=== PATIENT | female | born 1955 | race Caucasian/White ===

== ENCOUNTER 2018-11-30 11:00 | Emergency (ER) | payer OTHER, SELFPAY ==
[2018-11-30] VITALS (15 sets, daily range): BP systolic 94–124; BP diastolic 46–60; PULSE 63–73; RESP 11–21; TEMP 36.7; O2SAT 95–98
[2018-11-30] MEDS: Meclizine 25 MG TAB PO (12:33)
--- NOTE | 2018-11-30 12:39 | W.ED.GENAD ---
Discharge Plan Disposition Patient Disposition: HOME Condition: Improving Discharge Details Chief Complaint: Dizzy/Sync Clinical Impression: Benign paroxysmal positional vertigo, Hyperglycemia Primary Care Provider: Micheline,Local ED Provider: Isac Laird Home Meds and New Rx's Prescriptions: New meclizine 25 mg tablet 25 mg PO BID-TID PRN (Reason: dizziness) Qty: 30 RF: 1 Continued atorvastatin 20 mg Tablet 20 mg PO DAILY RF: 0 chlorthalidone 25 mg Tablet 25 mg PO DAILY RF: 0 aspirin [Aspirin Low Dose] 81 mg Tablet,Delayed Release (Dr/Ec) 81 mg PO DAILY RF: 0 losartan 100 mg Tablet 100 mg PO DAILY RF: 0 metformin 750 mg Tablet Extended Release 24 Hr 750 mg PO BID RF: 0 metoprolol tartrate 25 mg Tablet 25 mg PO BID RF: 0 duloxetine 60 mg Capsule,Delayed Release(Dr/Ec) 60 mg PO DAILY RF: 0 Victoza 2-Obed 0.6 mg/0.1 mL (18 mg/3 mL) Pen Injector 1.2 mg subcut QHS RF: 0 Toujeo SoloStar U-300 Insulin 300 unit/mL (1.5 mL) Insulin Pen 140 unit subcut DAILY RF: 0 Humulin R Regular U-100 Insuln 100 unit/mL Solution 35 unit subcut .BEFORE MEALS RF: 0 Discharge Instructions Instructions: Benign Paroxysmal Positional Vertigo (ED) Additional Instructions: Your blood glucose today was 172. This is high. Please follow-up with your doctor and neurology. Call for appointments. Timely follow-up is important. Return to the ER for any worsening or new concerning symptoms. Medical Decision Making 63-year-old female here with new onset vertigo, positional in nature. Patient has questionable history of stroke affecting vision right eye. Consider central neurologic process including CVA versus mass versus benign positional vertigo. MRI of the brain interpreted by radiology: No stroke. MRA of the brain and neck limited due to artifact. Radiology recommended CTA. 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 Patient was given meclizine and also Ativan for claustrophobia. Her vertigo significantly improved. Labs reviewed: No electrolyte abnormalities. Patient does have mild hyperglycemia. Results were reviewed with the patient. Epply maneuver performed and patient had improvement with initial fall to right. Plan for outpatient follow-up with PCP and neurology. Disposition decision was made weighing the risks and benefits of hospitalization versus outpatient treatment, the risk for further decompensation, and the patient's wishes. The patient was stable and requested discharge. Prior to discharge, my usual and customary return precautions were reviewed with the patient - this included follow-up instructions and reason to return to the emergency department if condition worsens, does not improve as expected, or other new concerns arise. HPI General Mode of arrival: ambulatory. Date/Time Provider Initiated Documentation: 11/30/18 11:52. Limitations to Documentation: no limitations. Information obtained by: patient. HPI Narrative: 63-year-old female with history of hypertension, diabetes, questionable stroke affecting vision right eye presents today with chief complaint of dizziness. Patient notes the dizziness, described as room spinning started around 1 AM. Symptoms severe. Symptoms occur when she moves her head. Symptoms improve and resolve with her lying flat. Is associated nausea. No headache, no visual changes, no numbness or weakness. No chest pain or shortness of breath. Related Data Home Medications Medication Instructions Recorded Confirmed Humulin R Regular U-100 Insuln 35 unit SUBCUT .BEFORE MEALS 11/30/18 11/30/18 Toujeo SoloStar U-300 Insulin 140 unit SUBCUT DAILY 11/30/18 11/30/18 Victoza 2-Obed 1.2 mg SUBCUT QHS 11/30/18 11/30/18 aspirin [Aspirin Low Dose] 81 mg PO DAILY 11/30/18 11/30/18 atorvastatin 20 mg PO DAILY 11/30/18 11/30/18 chlorthalidone 25 mg PO DAILY 11/30/18 11/30/18 duloxetine 60 mg PO DAILY 11/30/18 11/30/18 losartan 100 mg PO DAILY 11/30/18 11/30/18 meclizine 25 mg PO BID-TID PRN #30 tab 11/30/18 metformin 750 mg PO BID 11/30/18 11/30/18 metoprolol tartrate 25 mg PO BID 11/30/18 11/30/18 Previous Rx's Medication Instructions Recorded meclizine 25 mg PO BID-TID PRN #30 tab 11/30/18 Allergies Allergy/AdvReac Type Severity Reaction Status Date / Time No Known Allergies Allergy Unverified 11/30/18 11:41 General Stated Complaint: Dizzy/Sync GIDEON: 3 PFSH Social History Smoking/Tobacco Use Status: Current every day Tobacco Type: cigarettes Alcohol Intake: never Substance use type: does not use Exam Const General: cooperative and no acute distress HENMT Head: normocephalic and atraumatic Mouth: moist mucous membranes Eyes Conjunctivae: normal conjunctivae Sclera: normal sclerae EOM: EOM intact bilaterally and nystagmus Other: Horizontal nystagmus Neck Neck: trachea midline Resp Auscultation: clear to auscultation bilaterally, no rales, no rhonchi and no wheezes Cardio Jugular venous pressure: no JVD Rate: regular rate and not tachycardic Rhythm: regular rhythm GI Palpation: soft, not firm, no guarding, no masses, not rigid and nontender Skin General skin exam: no rashes or lesions noted Neuro General: alert, awake, oriented x3 and tone normal Cranial Nerves: CN's II-XI intact bilaterally and nystagmus horizontal Cognition: normal cognition Speech: speech normal Gait: normal gait Motor: strength 5/5 throughout Sensory Exam: no sensory deficits noted Coordination: [id number] test normal, [id number] test normal, Romberg test normal and rapid alternating movement UE normal Extrem General: no edema Psych Appearance: grossly normal Mental Status: mental status grossly normal Speech and Movement: speech and movement normal Course Vital Signs Temperature 36.7 C 11/30/18 11:39 Pulse 70 11/30/18 11:39 Respiratory Rate 16 11/30/18 11:39 Blood Pressure 113/53 L 11/30/18 11:39 Pulse Oximetry 98 11/30/18 11:39 Temperature 36.7 C 11/30/18 11:39 Temperature Source Skin 11/30/18 11:39 Pulse 70 11/30/18 11:39 Respiratory Rate 16 11/30/18 11:39 Respiratory Effort Non-Labored 11/30/18 11:39 Blood Pressure 113/53 L 11/30/18 11:39 Blood Pressure Position Sitting 11/30/18 11:39 Pulse Oximetry 98 11/30/18 11:39 Oxygen Delivery Method Room Air 11/30/18 11:39 Oxygen Flow Rate 0 11/30/18 11:39 Pain Level 0 11/30/18 11:39
--- NOTE | 2018-11-30 13:11 | DI.MRI_ITS ---
SYMPTOMS/DIAGNOSIS: VERTIGO MR ANGIOGRAM, [place]: MR angiography of the region of the [place] was performed according to the usual protocol. The examination is of limited technical quality. The basilar artery appears small and the posterior circulation appears to predominantly be supplied across the posterior communicating artery on the left from the internal carotid circulation. Right posterior communicating is also patent. Anterior cerebral arteries are supplied from left-sided circulation. Internal carotid arteries poorly seen. Middle cerebral arteries appear grossly intact. Anterior cerebral arteries and posterior cerebral arteries appear grossly intact. CONCLUSION: Very limited study. No gross abnormality seen as described above. If there is a high clinical suspicion of posterior circulation pathology, additional evaluation with CTA should be considered. BRAIN MRI: MRI examination of the brain was performed according to the usual protocol. Examination is of limited technical quality due to motion artifact. FLAIR images are of fairly good technical quality and show no significant signal abnormality in the brain or orbits. Diffusion weighted imaging is of fairly good technical quality and shows no evidence of infarct. Susceptibility weighted imaging is limited. CONCLUSION: Limited scan shows no significant abnormality. CAROTID MR ANGIOGRAPHY: MR angiography of the carotid circulation was performed according to the usual protocol. The examination is technically very limited. No gross evidence of occlusion or aneurysm in the visualized common or internal carotid arteries, but the findings are essentially nondiagnostic.
[2018-11-30] MEDS: LORazepam 2 MG/ML VIAL (13:13)
[2018-11-30 14:16] LABS: Abs Immature Grans 0.01 k/cumm (0.0-0.09); Absolute Basophil Count 0.06 k/cumm (0.0-0.2); Absolute Eosinophil Count 0.14 k/cumm (0.0-0.7); Absolute Lymphocyte Count 2.58 k/cumm (1.2-3.4); Absolute Monocyte Count 0.64 k/cumm (0.11-0.7); Absolute Neutrophil Count 5.16 k/cumm (1.2-6.7); Basophils % 0.7; Eosinophils % 1.6; HCT 35.9 % (36.0-46.0); HGB 11.3 g/dL (12.0-15.5); Immature Grans % 0.1; Mean Corp. HGB Concentration 31.5 g/dL (32.0-36.0); Mean Corpuscular Hemoglobin 28.2 pg (27.0-33.0); Mean Corpuscular Volume 89.5 fL (80-95); Mean Platelet Volume 10.2 fL (8.0-11.0); Monocytes % 7.5; Neutrophils % 60.1; Platelet Count 322 x1000/uL (130-400); RBC 4.01 m/cumm (4.00-5.20); RBC Distribution Width 14.1 % (11.7-14.6); White Blood Cell Count 8.59 k/cumm (4.4-10.8)
--- NOTE | 2018-11-30 14:31 | DI.CT_ITS ---
SYMPTOMS/DIAGNOSIS: LIMITED MRA BRAIN, VERTIGO CT ANGIOGRAPHY, CERVICOCRANIAL REGION: CT angiography was performed with multi slice acquisition and multi planar and 3D reconstruction. CT angiography was performed with intravenous infusion of 85 cc of Omnipaque 350. Images obtained through the upper lung lucas are unremarkable. Visualized portions of the pulmonary arterial circulation appear intact. No gross thoracic aortic aneurysm or dissection as visualized. The common carotid arteries are normal in appearance bilaterally. There is mild atheromatous plaque formation in the carotid bifurcations bilaterally without evidence of significant stenosis. There is tortuosity of the intracranial internal carotid arteries in the cavernous region without evidence of significant stenosis, aneurysm or dissection. Middle cerebral arteries and major branches are unremarkable in appearance. Anterior cerebral arteries and major branches are unremarkable in appearance. Right vertebral artery is unremarkable in appearance throughout its course. Left vertebral artery is diminutive but patent. Basilar artery is small. Posterior communicating artery is patent bilaterally with a large left posterior communicating artery. The posterior cerebral arteries and major branches appear intact. No aneurysm or dissection identified in the posterior circulation as described. Orbital and temporal bone structures appear intact. No intracranial enhancing lesions seen. No cervical mass or adenopathy seen. Tracheolaryngeal structures appear intact. CONCLUSION: Negative CT angiogram, carotid and [place] regions.
[2018-11-30 14:36] LABS: ALT 38 U/L (12-78); AST 22 U/L (15-37); Albumin 3.8 g/dL (3.4-5.0); Alkaline Phosphatase 157 U/L (46-116); Anion Gap 10.7 mmol/L (3-11); BUN 33 mg/dL (7-18); Bilirubin, Total 0.3 mg/dL (0.2-1.0); CO2 27.3 mmol/L (21.0-32.0); CREATININE 1.15 mg/dL (0.55-1.02); Calcium 9.2 mg/dL (8.5-10.1); Chloride 102 mmol/L (98-107); Estimated GFR 47.66 (mL/min/1.73m2); Glucose 172 mg/dL (70-100); Magnesium 2.1 mg/dL (1.8-2.4); Potassium 3.9 mmol/L (3.5-5.1); Sodium 140 mmol/L (136-145); Total Protein 8.3 g/dL (6.4-8.2)
[2018-11-30 14:42] LABS: Troponin I < 0.02 ng/mL (0.00-0.06)
[2018-11-30] MEDS: Omnipaque 350 MG/ML 100 ML BTL IJ (15:19)
--- NOTE | 2018-11-30 15:52 | ED.GENADUL_ITS ---
Discharge Plan Disposition Patient Disposition: HOME Condition: Improving Discharge Details Chief Complaint: Dizzy/Sync Clinical Impression: Benign paroxysmal positional vertigo, Hyperglycemia Primary Care Provider: Micheline,Local ED Provider: Isac Laird Home Meds and New Rx's Prescriptions: New meclizine 25 mg tablet 25 mg PO BID-TID PRN (Reason: dizziness) Qty: 30 RF: 1 Continued atorvastatin 20 mg Tablet 20 mg PO DAILY RF: 0 chlorthalidone 25 mg Tablet 25 mg PO DAILY RF: 0 aspirin [Aspirin Low Dose] 81 mg Tablet,Delayed Release (Dr/Ec) 81 mg PO DAILY RF: 0 losartan 100 mg Tablet 100 mg PO DAILY RF: 0 metformin 750 mg Tablet Extended Release 24 Hr 750 mg PO BID RF: 0 metoprolol tartrate 25 mg Tablet 25 mg PO BID RF: 0 duloxetine 60 mg Capsule,Delayed Release(Dr/Ec) 60 mg PO DAILY RF: 0 Victoza 2-Obed 0.6 mg/0.1 mL (18 mg/3 mL) Pen Injector 1.2 mg subcut QHS RF: 0 Toujeo SoloStar U-300 Insulin 300 unit/mL (1.5 mL) Insulin Pen 140 unit subcut DAILY RF: 0 Humulin R Regular U-100 Insuln 100 unit/mL Solution 35 unit subcut .BEFORE MEALS RF: 0 Discharge Instructions Instructions: Benign Paroxysmal Positional Vertigo (ED) Additional Instructions: Your blood glucose today was 172. This is high. Please follow-up with your doctor and neurology. Call for appointments. Timely follow-up is important. Return to the ER for any worsening or new concerning symptoms. Medical Decision Making 63-year-old female here with new onset vertigo, positional in nature. Patient has questionable history of stroke affecting vision right eye. Consider central neurologic process including CVA versus mass versus benign positional vertigo. MRI of the brain interpreted by radiology: No stroke. MRA of the brain and neck limited due to artifact. Radiology recommended CTA. 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 Patient was given meclizine and also Ativan for claustrophobia. Her vertigo significantly improved. Labs reviewed: No electrolyte abnormalities. Patient does have mild hyperglycemia. Results were reviewed with the patient. Epply maneuver performed and patient had improvement with initial fall to right. Plan for outpatient follow-up with PCP and neurology. Disposition decision was made weighing the risks and benefits of hospitalization versus outpatient treatment, the risk for further decompensation, and the patient's wishes. The patient was stable and requested discharge. Prior to discharge, my usual and customary return precautions were reviewed with the patient - this included follow-up instructions and reason to return to the emergency department if condition worsens, does not improve as expected, or other new concerns arise. HPI General Mode of arrival: ambulatory . Date/Time Provider Initiated Documentation: 11/30/18 11:52 . Limitations to Documentation: no limitations . Information obtained by: patient . HPI Narrative: 63-year-old female with history of hypertension, diabetes, questionable stroke affecting vision right eye presents today with chief complaint of dizziness. Patient notes the diz ziness, described as room spinning started around 1 AM. Symptoms severe. Symptoms occur when she moves her head. Symptoms improve and resolve with her lying flat. Is associated nausea. No headache, no visual changes, no numbness or weakness. No chest pain or shortness of breath. Related Data Home Medications Medication Instructions Recorded Confirmed Humulin R Regular U-100 Insuln 35 unit SUBCUT .BEFORE MEALS 11/30/18 11/30/18 Toumarcialo SoloStar U-300 Insulin 140 unit SUBCUT DAILY 11/30/18 11/30/18 Victoza 2-Obed 1.2 mg SUBCUT QHS 11/30/18 11/30/18 aspirin [Aspirin Low Dose] 81 mg PO DAILY 11/30/18 11/30/18 atorvastatin 20 mg PO DAILY 11/30/18 11/30/18 chlorthalidone 25 mg PO DAILY 11/30/18 11/30/18 duloxetine 60 mg PO DAILY 11/30/18 11/30/18 losartan 100 mg PO DAILY 11/30/18 11/30/18 meclizine 25 mg PO BID-TID PRN #30 tab 11/30/18 metformin 750 mg PO BID 11/30/18 11/30/18 metoprolol tartrate 25 mg PO BID 11/30/18 11/30/18 Previous Rx's Medication Instructions Recorded meclizine 25 mg PO BID-TID PRN #30 tab 11/30/18 Allergies Allergy/AdvReac Type Severity Reaction Status Date / Time No Known Allergies Allergy Unverified 11/30/18 11:41 General Stated Complaint: Dizzy/Sync GIDEON: 3 PFSH Social History Smoking/Tobacco Use Status: Current every day Tobacco Type: cigarettes Alcohol Intake: never Substance use type: does not use Exam Const General: cooperative and no acute distress HENMT Head: normocephalic and atraumatic Mouth: moist mucous membranes Eyes Conjunctivae: normal conjunctivae Sclera: normal sclerae EOM: EOM intact bilaterally and nystagmus Other: Horizontal nystagmus Neck Neck: trachea midline Resp Auscultation: clear to auscultation bilaterally, no rales, no rhonchi and no wheezes Cardio Jugular venous pressure: no JVD Rate: regular rate and not tachycardic Rhythm: regular rhythm GI Palpation: soft, not firm, no guarding, no masses, not rigid and nontender Skin General skin exam: no rashes or lesions noted Neuro General: alert, awake, oriented x3 and tone normal Cranial Nerves: CN's II-XI intact bilaterally and nystagmus horizontal Cognition: normal cognition Speech: speech normal Gait: normal gait Motor: strength 5/5 throughout Sensory Exam: no sensory deficits noted Coordination: [id number] test normal, [id number] test normal, Romberg test normal and rapid alternating movement UE normal Extrem General: no edema Psych Appearance: grossly normal Mental Status: mental status grossly normal Speech and Movement: speech and movement normal Course Vital Signs Temperature 36.7 C 11/30/18 11:39 Pulse 70 11/30/18 11:39 Respiratory Rate 16 11/30/18 11:39 Blood Pressure 113/53 L 11/30/18 11:39 Pulse Oximetry 98 11/30/18 11:39 Temperature 36.7 C 11/30/18 11:39 Temperature Source Skin 11/30/18 11:39 Pulse 70 11/30/18 11:39 Respiratory Rate 16 11/30/18 11:39 Respiratory Effort Non-Labored 11/30/18 11:39 Blood Pressure 113/53 L 11/30/18 11:39 Blood Pressure Position Sitting 11/30/18 11:39 Pulse Oximetry 98 11/30/18 11:39 Oxygen Delivery Method Room Air 11/30/18 11:39 Oxygen Flow Rate 0 11/30/18 11:39 Pain Level 0 11/30/18 11:39
== END 2018-11-30 16:23 | disposition home or self-care (01) ==
PROVIDERS: Emergency Provider Student in an Organized Health Care Education/Training Program
DX: H81.10 Benign paroxysmal vertigo, unspecified ear (principal); E11.65 Type 2 diabetes mellitus with hyperglycemia; Z79.4 Long term (current) use of insulin
CPT/HCPCS: 36415; 70496; 70498; 70544; 70547; 80053; 95992; 99285; 70551; 83735; 84484; 85025; 99284; J2060; J3490